=== PATIENT | male | born 1980 | race American Indian/Alaskan Native ===

== ENCOUNTER 2022-03-20 00:10 | Emergency (ER) | payer MEDICAID, OTHER ==
[~2022-03-20] VITALS: Ht 182.9 cm; Wt 113.6 kg
[~2022-03-20 00:10] MED LIST: LORA-268 PO; LORA-269 PO; PRAZ2CAP2 PO; PRAZ5CAP2 PO; QUET100T34 PO; VENL150C58 PO
[2022-03-20 00:25] VITALS: BP 132/93
[2022-03-20 01:29] LABS: BASOPHILS % (AUTO) 0.4 % (0-1); EOSINOPHILS # (AUTO) 0.3 X10'3 (0-0.9); EOSINOPHILS % (AUTO) 4.2 % (0-6); HEMOGLOBIN 15.2 g/dl (14.0-17.9); LYMPHOCYTES # (AUTO) 2.4 X10'3 (1.1-4.8); LYMPHOCYTES % (AUTO) 39.8 % (21-51); MEAN CORPUSCULAR HEMOGLOBIN 30.2 PG (27.0-31.0); MEAN CORPUSCULAR HGB CONC 34.6 g/dL (33.0-36.5); MEAN CORPUSCULAR VOLUME 87.5 FL (78-98); MEAN PLATELET VOLUME 8.4 FL (7.4-10.4); MONOCYTES # (AUTO) 0.4 X10'3 (0-0.9); MONOCYTES % (AUTO) 5.9 % (2-12); NEUTROPHILS % (AUTO) 49.7 % (42-75); PLATELET COUNT 183 X10'3 (140-440); RED BLOOD COUNT 5.03 X10'6 (4.70-6.10); RED CELL DISTRIBUTION WIDTH 16.7 % (11.5-14.5)
[2022-03-20 01:42] LABS: ALANINE AMINOTRANSFERASE 35 U/L (12-78); ALBUMIN/GLOBULIN RATIO 1.2 (1.1-1.5); ALKALINE PHOSPHATASE 135 IU/L (46-116); ANION GAP 13 (8-16); ASPARTATE AMINO TRANSFERASE 30 U/L (10-37); BILIRUBIN,TOTAL 0.4 MG/DL (0.1-1.0); BLOOD UREA NITROGEN 4 MG/DL (7-18); BUN/CREATININE RATIO 5.4 (5.4-32.0); CALCIUM 8.7 MG/DL (8.5-10.1); CHLORIDE 105 MMOL/L (99-107); CREATININE 0.74 MG/DL (0.60-1.10); GLUCOSE 99 MG/DL (70-104); LIPASE 87 U/L (73-393); POTASSIUM 3.2 MMOL/L (3.5-5.1); SODIUM 143 MMOL/L (135-145); TOTAL CARBON DIOXIDE 25.1 MMOL/L (24-32); TOTAL PROTEIN 7.3 G/DL (6.4-8.2); eGFR > 90 ML/MIN
[2022-03-20] MEDS ORDERED: LORazepam 2 mg/ml vial IV ONE (07:55)
[2022-03-20] MEDS ORDERED: ringers solution, lactated 1000ml IV soln IV ONE (07:55)
[2022-03-20] MEDS ORDERED: morphine 4 MG/ML inj SYRINge IV PRN (08:45)
[2022-03-20] MEDS ORDERED: ondansetron/PF 4mg/2ml inj IV ONE (08:45)
[2022-03-20 10:09] LABS: CLARITY,URINE CLOUDY (Clear); COLOR,URINE YELLOW (Yellow); GLUCOSE, URINE NEGATIVE (Neg); KETONES,URINE TRACE mg/dl (Neg); LEUKOCYTE ESTERASE ,URINE TRACE (Neg); NITRITES, URINE NEGATIVE (Neg); OCCULT BLOOD,URINE NEGATIVE (Neg); PROTEIN,URINE TRACE mg/dl (Neg); UROBILINOGEN,URINE 0.2 E.U/dL (0.2-1.0)
[2022-03-20 10:10] LABS: UA COLLECTION TYPE CLN CATCH MIDSTREAM
[2022-03-20 10:19] LABS: MUCUS STRANDS MANY /LPF (Neg); SQUAMOUS EPITHELIAL CELL,UR MANY /LPF (FEW)
[2022-03-20 10:21] LABS: BACTERIA,URINE FEW /HPF (Neg); TRANSITIONAL EPI CELLS,URINE FEW /HPF
[2022-03-20 10:22] LABS: RBC,URINE 0-2 /HPF (0-2)
== END 2022-03-20 13:35 | disposition home or self-care (01) ==
LOC: ER 00:10
DX: R07.89 Other chest pain (principal); F10.239 Alcohol dependence with withdrawal, unspecified; R11.10 Vomiting, unspecified; R19.7 Diarrhea, unspecified; I10 Essential (primary) hypertension; Z86.69 Personal history of other diseases of the nervous system and sense organs; Z98.890 Other specified postprocedural states; Z72.89 Other problems related to lifestyle; Z79.899 Other long term (current) drug therapy; Y90.9 Presence of alcohol in blood, level not specified
CPT/HCPCS: 36415; 71045; 80053; 81001; 83690; 84484; 85025; 93005; 96361; 96374; 96375; 99285; J2060; J2405; J7120

== ENCOUNTER 2022-06-15 02:19 | Inpatient (IN) | payer MEDICAID, OTHER ==
[~2022-06-15] VITALS: Ht 182.9 cm; Wt 113.6 kg
--- NOTE | 2022-06-15 02:35 | NUR ---
3-4 PINTS OF MANOJ FRYE A DAY
[2022-06-15] MEDS ORDERED: LYR25C PO (02:41)
[2022-06-15 03:44] LABS: BASOPHILS # (AUTO) 0.1 X10'3 (0-0.2); BASOPHILS % (AUTO) 1.1 % (0-1); EOSINOPHILS # (AUTO) 0.2 X10'3 (0-0.9); EOSINOPHILS % (AUTO) 1.7 % (0-6); HEMATOCRIT 46.6 % (42.0-52.0); HEMOGLOBIN 15.7 g/dl (14.0-17.9); LYMPHOCYTES # (AUTO) 1.4 X10'3 (1.1-4.8); MEAN CORPUSCULAR HEMOGLOBIN 30.3 PG (27.0-31.0); MEAN CORPUSCULAR HGB CONC 33.7 g/dL (33.0-36.5); MEAN CORPUSCULAR VOLUME 89.9 FL (78-98); MEAN PLATELET VOLUME 9.3 FL (7.4-10.4); MONOCYTES # (AUTO) 0.5 X10'3 (0-0.9); MONOCYTES % (AUTO) 6.1 % (2-12); NEUTROPHILS # (AUTO) 6.5 X10'3 (1.8-7.7); NEUTROPHILS % (AUTO) 75.1 % (42-75); PLATELET COUNT 202 X10'3 (140-440); RED BLOOD COUNT 5.18 X10'6 (4.70-6.10); WHITE BLOOD COUNT 8.7 X10'3 (4.5-11.0)
[2022-06-15 03:59] LABS: ALANINE AMINOTRANSFERASE 86 U/L (12-78); ALBUMIN 3.9 G/DL (3.4-5.0); ALBUMIN/GLOBULIN RATIO 1.3 (1.1-1.5); ALKALINE PHOSPHATASE 131 IU/L (46-116); ANION GAP 15 (8-16); ASPARTATE AMINO TRANSFERASE 71 U/L (10-37); BLOOD UREA NITROGEN 6 MG/DL (7-18); BUN/CREATININE RATIO 7.7 (5.4-32.0); CALCIUM 8.3 MG/DL (8.5-10.1); CHLORIDE 98 MMOL/L (99-107); CREATININE 0.78 MG/DL (0.60-1.10); GLUCOSE 110 MG/DL (70-104); LIPASE 69 U/L (73-393); SODIUM 139 MMOL/L (135-145); TOTAL CARBON DIOXIDE 25.9 MMOL/L (24-32); TOTAL PROTEIN 6.9 G/DL (6.4-8.2); eGFR > 90 ML/MIN
[2022-06-15] MEDS ORDERED: thiamine inj. 100 MG in normal saline 100ml IV soln 100 ML IV ONE (04:05)
[2022-06-15] MEDS ORDERED: normal saline 1000ML IV soln IVB ONE (04:05)
[2022-06-15] MEDS ORDERED: magnesium 2GM in 50ml NS 50 ML IV ONE (04:05)
[2022-06-15] MEDS ORDERED: potassium CL 10mEq/100ml bag 100 ML IV ONE (04:05)
[2022-06-15] MEDS ORDERED: LORazepam 2 mg/ml vial IV ONE (04:05)
[2022-06-15] MEDS ORDERED: haloperidol lactate 5mg/ml inj IM ONE (04:05)
[2022-06-15 04:06] LABS: ETHANOL 0.188 GM/DL (0.0-0.010); MAGNESIUM 1.3 MG/DL (1.5-2.4)
[2022-06-15] MEDS ORDERED: ondansetron/PF 4mg/2ml inj IV PRN (05:00)
[2022-06-15] MEDS ORDERED: haloperidol lactate 5mg/ml inj IM PRN (05:00)
[2022-06-15] MEDS ORDERED: acetaminophen 325mg tablet PO PRN ×2 (05:00)
[2022-06-15] MEDS ORDERED: LORazepam 2 mg/ml vial IV PRN (05:00)
[2022-06-15] MEDS ORDERED: potassium Cl 20 mEq SR tablet PO PRN ×2 (05:00)
[2022-06-15] MEDS ORDERED: magnesium 4gm in 100ml NS 100 ML IV PRN (05:00)
[2022-06-15] MEDS ORDERED: potassium Cl 40MEQ/1/2NS 520ml 520 ML IV PRN (05:00)
[2022-06-15] MEDS ORDERED: normal saline 1000ml 1,000 ML IV SCH (05:00)
[2022-06-15] MEDS ORDERED: magnesium Cl slow-release 64mg tablet PO PRN (05:00)
[2022-06-15] MEDS ORDERED: haloperidol 5mg tablet PO PRN (05:00)
[2022-06-15] MEDS ORDERED: thiamine 100mg/ml 2ml inj. IV SCH ×3 (08:00→15:49)
[2022-06-15] MEDS ORDERED: atenolol 50mg tablet PO SCH (08:00)
[2022-06-15] MEDS ORDERED: folic acid 1mg/0.2ml inj IV SCH (08:00)
[2022-06-15] MEDS ORDERED: heparin, porcine 5000 units/ml vial SQ SCH (08:00)
--- NOTE | 2022-06-15 10:49 | NUR ---
CIWA SCORE 8
--- NOTE | 2022-06-15 10:51 | NUR ---
PT REQUESTING ATIVAN FOR TREMORS. PT DENIES VISUAL, TACTILE DISTURBANCES, VOMITING. PT A&O X4. PT SCORED 8 ON CIWA SCORE. PT WAS GIVEN ATIVAN 2 HRS AGO. WILL CONT. TO MONITOR FOR S/S OF WITHDRAWL.
[2022-06-15] MEDS: LORazepam 1 MG tablet PO PRN ×2 (12:49→16:00)
[2022-06-15 13:09] LABS: CLARITY,URINE CLOUDY (Clear); GLUCOSE, URINE NEGATIVE (Neg); KETONES,URINE 40 mg/dl (Neg); LEUKOCYTE ESTERASE ,URINE NEGATIVE (Neg); OCCULT BLOOD,URINE NEGATIVE (Neg); PH,URINE 6.5 (4.8-8.0); PROTEIN,URINE 100 mg/dl (Neg); UROBILINOGEN,URINE 0.2 E.U/dL (0.2-1.0)
[2022-06-15 13:11] LABS: COLOR,URINE DARK YELLOW (Yellow)
[2022-06-15 13:15] LABS: UA COLLECTION TYPE CLN CATCH MIDSTREAM
[2022-06-15 13:16] LABS: NITRITES, URINE NEGATIVE (Neg)
[2022-06-15 13:24] LABS: MUCUS STRANDS MANY /LPF (Neg)
[2022-06-15 13:30] LABS: BACTERIA,URINE FEW /HPF (Neg); RBC,URINE 0-2 /HPF (0-2); WBC,URINE 30-50 /HPF (0-4)
[2022-06-15 13:34] LABS: SQUAMOUS EPITHELIAL CELL,UR MODERATE /LPF (FEW)
[2022-06-15 13:41] LABS: URINE AMPHETAMINE SCREEN NEGATIVE (Neg); URINE BARBITUATE SCREEN NEGATIVE (Neg); URINE BENZODIAZEPINES SCREEN NEGATIVE (Neg); URINE CANNABINOID SCREEN NEGATIVE (Neg); URINE COCAINE SCREEN NEGATIVE (Neg); URINE METHADONE SCREEN NEGATIVE (Neg); URINE OPIATE SCREEN NEGATIVE (Neg); URINE PHENCYCLIDINE SCREEN NEGATIVE (Neg)
[2022-06-15] MEDS ORDERED: LORA-269 PO ×3 (13:54→18:34)
[2022-06-15] MEDS ORDERED: PREG300C19 PO (13:55)
[2022-06-15] MEDS ORDERED: QUET50TA24 PO (14:00)
[2022-06-15 16:06] VITALS: BP 142/92
--- NOTE | 2022-06-15 16:28 | NUR ---
PT SCORES 5 ON CIWA SCALE. HAS SLIGHT TREMORS. PT DENIES HEADACHE, NAUSEA, VISUAL, TACTILE DISTURBANCES, VITALS WNL. PT REQUESTING IV ATIVAN. PER PT SYMPTOMS PO ATIVAN APPROPRIATE.
--- NOTE | 2022-06-15 18:16 | NUR ---
PT REQUESTING TO GO HOME. DR. COVINGTON PAGED.
--- NOTE | 2022-06-15 19:59 | NUR ---
spoke to Laura on the PCU floor, instructed to dc patient as "ER" usually does.
[2022-06-16] MEDS ORDERED: PROM12.512 PO ×2 (03:51)
[2022-06-17] MEDS ORDERED: PROM12.510 PO (17:13)
[2022-06-17] MEDS ORDERED: LORA-269 PO (17:13)
== END 2022-06-15 20:00 | disposition home or self-care (01) | DRG 53 ==
LOC: ER 02:20 → ED HOLD 05:02
PROVIDERS: ADMIT Internal Medicine; ATTEND Internal Medicine
DX: G40.89 Other seizures (principal); K70.10 Alcoholic hepatitis without ascites; E83.42 Hypomagnesemia; E87.6 Hypokalemia; Z20.822 Contact with and (suspected) exposure to COVID-19; F10.230 Alcohol dependence with withdrawal, uncomplicated; R74.01 Elevation of levels of liver transaminase levels; G89.29 Other chronic pain; I10 Essential (primary) hypertension; Z79.899 Other long term (current) drug therapy
CPT/HCPCS: 36415; 71045; 73130; 80053; 80305; 80320; 81001; 83690; 83735; 84132; 85025; 87088; 87811; 93005; 96365; 96367; 96372; 96375; 99285; A4615; G0378; J1630; J1644; J2060; J2405; J3411; J3475; J3480; J3490; J7030

== ENCOUNTER 2022-06-16 03:29 | Emergency (ER) | payer MEDICAID ==
[~2022-06-16] VITALS: Ht 182.9 cm; Wt 117.2 kg
[~2022-06-16 03:29] MED LIST changes: -LORA-268 PO; +PREG300C19 PO; -QUET100T34 PO; +QUET50TA24 PO; -VENL150C58 PO
[2022-06-16 03:40] VITALS: BP 161/100
[2022-06-16] MEDS ORDERED: PROM12.512 PO ×2 (03:51)
--- NOTE | 2022-06-16 03:51 | NUR ---
Dr Dawson in room and evaluated pt
[2022-06-17] MEDS ORDERED: LORA-269 PO (17:13)
[2022-06-17] MEDS ORDERED: PROM12.510 PO (17:13)
== END 2022-06-16 05:07 | disposition home or self-care (01) ==
LOC: ER 03:30
DX: F10.239 Alcohol dependence with withdrawal, unspecified (principal); I10 Essential (primary) hypertension; Y90.9 Presence of alcohol in blood, level not specified
CPT/HCPCS: 99283

== ENCOUNTER 2022-08-05 22:25 | Emergency (ER) | payer MEDICAID ==
[~2022-08-05] VITALS: Ht 180.3 cm; Wt 109.1 kg
[~2022-08-05 22:25] MED LIST changes: +PROM12.510 PO
[2022-08-05] MEDS ORDERED: LORazepam 2 mg/ml vial IV ONE (23:30)
[2022-08-05] MEDS ORDERED: LORazepam 1 MG tablet PO ONE (23:30)
[2022-08-05] MEDS ORDERED: thiamine 100mg/ml 2ml inj. IV ONE (23:35)
[2022-08-05] MEDS ORDERED: magnesium 2GM in 50ml NS 50 ML IV ONE (23:35)
[2022-08-05 23:46] LABS: BASOPHILS % (AUTO) 0.5 % (0-1); EOSINOPHILS # (AUTO) 0.2 X10'3 (0-0.9); EOSINOPHILS % (AUTO) 2.9 % (0-6); HEMOGLOBIN 13.4 g/dl (14.0-17.9); LYMPHOCYTES # (AUTO) 1.3 X10'3 (1.1-4.8); LYMPHOCYTES % (AUTO) 23.3 % (21-51); MEAN CORPUSCULAR HEMOGLOBIN 30.2 PG (27.0-31.0); MEAN CORPUSCULAR HGB CONC 33.4 g/dL (33.0-36.5); MEAN CORPUSCULAR VOLUME 90.3 FL (78-98); MEAN PLATELET VOLUME 9.6 FL (7.4-10.4); MONOCYTES # (AUTO) 0.4 X10'3 (0-0.9); MONOCYTES % (AUTO) 7.9 % (2-12); NEUTROPHILS # (AUTO) 3.7 X10'3 (1.8-7.7); NEUTROPHILS % (AUTO) 65.4 % (42-75); PLATELET COUNT 125 X10'3 (140-440); RED BLOOD COUNT 4.43 X10'6 (4.70-6.10); RED CELL DISTRIBUTION WIDTH 14.8 % (11.5-14.5); WHITE BLOOD COUNT 5.6 X10'3 (4.5-11.0)
[2022-08-05 23:59] LABS: ALANINE AMINOTRANSFERASE 69 U/L (12-78); ALBUMIN 3.5 G/DL (3.4-5.0); ALBUMIN/GLOBULIN RATIO 1.2 (1.1-1.5); ALKALINE PHOSPHATASE 120 IU/L (46-116); ANION GAP 12 (8-16); ASPARTATE AMINO TRANSFERASE 35 U/L (10-37); BILIRUBIN,TOTAL 0.2 MG/DL (0.1-1.0); BLOOD UREA NITROGEN 4 MG/DL (7-18); BUN/CREATININE RATIO 5.5 (5.4-32.0); CHLORIDE 109 MMOL/L (99-107); CREATININE 0.73 MG/DL (0.60-1.10); ETHANOL 0.137 GM/DL (0.0-0.010); GLUCOSE 100 MG/DL (70-104); LIPASE 90 U/L (73-393); SODIUM 144 MMOL/L (135-145); TOTAL CARBON DIOXIDE 22.6 MMOL/L (24-32); TOTAL PROTEIN 6.4 G/DL (6.4-8.2); eGFR > 90 ML/MIN
[2022-08-06] MEDS ORDERED: LORazepam 2 mg/ml vial IV ONE (00:55)
[2022-08-06] MEDS ORDERED: LORazepam 1 MG tablet PO ONE (00:55)
[2022-08-06] MEDS ORDERED: ondansetron/PF 4mg/2ml inj IV ONE (00:55)
[2022-08-06] MEDS ORDERED: CHLO25CA10 PO (01:09)
[2022-08-06] MEDS ORDERED: ONDA4TAB12 PO (01:09)
[2022-08-06 01:30] VITALS: BP 115/74
== END 2022-08-06 02:14 | disposition home or self-care (01) ==
LOC: ER 22:26
DX: F10.129 Alcohol abuse with intoxication, unspecified (principal); I10 Essential (primary) hypertension; Z88.8 Allergy status to other drugs, medicaments and biological substances; Y90.9 Presence of alcohol in blood, level not specified
CPT/HCPCS: 36415; 80053; 80320; 83690; 85025; 93005; 96365; 96375; 96376; 99285; J2060; J2405; J3411; J3475

== ENCOUNTER 2022-09-07 17:05 | Emergency (ER) | payer MEDICAID ==
[~2022-09-07] VITALS: Ht 182.9 cm; Wt 114.5 kg
[~2022-09-07 17:05] MED LIST changes: +CHLO25CA10 PO; +KEP500T PO; +ONDA4TAB12 PO; +PREG300C PO; +QUET50TA PO
--- NOTE | 2022-09-07 17:39 | NUR ---
PT AWARE OF NEED FOR UA, PROVIDED WITH URINAL. STATES HE CANNOT PROVIDE SAMPLE AT THIS TIME
[2022-09-07] MEDS ORDERED: LORazepam 2 mg/ml vial IV ONE (17:40)
--- NOTE | 2022-09-07 17:48 | NUR ---
SEIZURE PADS IN PLACE
[2022-09-07] MEDS ORDERED: ondansetron/PF 4mg/2ml inj IV ONE (18:00)
[2022-09-07] MEDS ORDERED: thiamine inj. 100 MG in normal saline 100ml IV soln 100 ML IV ONE (18:00)
[2022-09-07 18:10] LABS: ALANINE AMINOTRANSFERASE 29 U/L (12-78); ALBUMIN 3.9 G/DL (3.4-5.0); ALBUMIN/GLOBULIN RATIO 1.2 (1.1-1.5); ALKALINE PHOSPHATASE 130 IU/L (46-116); ANION GAP 12 (8-16); ASPARTATE AMINO TRANSFERASE 24 U/L (10-37); BILIRUBIN,TOTAL 0.5 MG/DL (0.1-1.0); BLOOD UREA NITROGEN 3 MG/DL (7-18); BUN/CREATININE RATIO 3.6 (10.0-20.0); CALCIUM 8.2 MG/DL (8.5-10.1); CHLORIDE 107 MMOL/L (99-107); CREATININE 0.83 MG/DL (0.60-1.10); GLUCOSE 100 MG/DL (70-104); MAGNESIUM 1.7 MG/DL (1.5-2.4); POTASSIUM 3.1 MMOL/L (3.5-5.1); SODIUM 147 MMOL/L (135-145); TOTAL CARBON DIOXIDE 28.3 MMOL/L (24-32); TOTAL PROTEIN 7.1 G/DL (6.4-8.2); eGFR > 90 ML/MIN
[2022-09-07 18:14] LABS: BASOPHILS % (AUTO) 0.4 % (0-1); EOSINOPHILS % (AUTO) 0.3 % (0-6); HEMATOCRIT 47.8 % (42.0-52.0); HEMOGLOBIN 16.1 g/dl (14.0-17.9); LYMPHOCYTES # (AUTO) 2.1 X10'3 (1.1-4.8); LYMPHOCYTES % (AUTO) 27.2 % (21-51); MEAN CORPUSCULAR HEMOGLOBIN 30.2 PG (27.0-31.0); MEAN CORPUSCULAR HGB CONC 33.7 g/dL (33.0-36.5); MEAN CORPUSCULAR VOLUME 89.9 FL (78-98); MEAN PLATELET VOLUME 9.4 FL (7.4-10.4); MONOCYTES # (AUTO) 0.4 X10'3 (0-0.9); MONOCYTES % (AUTO) 5.5 % (2-12); NEUTROPHILS # (AUTO) 5.2 X10'3 (1.8-7.7); NEUTROPHILS % (AUTO) 66.6 % (42-75); PLATELET COUNT 223 X10'3 (140-440); RED BLOOD COUNT 5.32 X10'6 (4.70-6.10); RED CELL DISTRIBUTION WIDTH 15.5 % (11.5-14.5); WHITE BLOOD COUNT 7.9 X10'3 (4.5-11.0)
[2022-09-07] MEDS ORDERED: thiamine 100mg/ml 2ml inj. IV ONE (18:20)
[2022-09-07] MEDS ORDERED: potassium Cl 20 mEq SR tablet PO ONE (18:45)
[2022-09-07] MEDS ORDERED: magnesium 2GM in 50ml NS 50 ML IV ONE (18:45)
[2022-09-07] MEDS ORDERED: chlordiazePOXIDE 25mg capsule PO ONE ×2 (21:30→23:55)
[2022-09-07] MEDS ORDERED: normal saline 1000ML IV soln IVB ONE (21:30)
[2022-09-07] MEDS ORDERED: HYDROcodone/acetaminophen 5mg/325mg tablet PO ONE (21:50)
[2022-09-07 22:20] LABS: COLOR,URINE YELLOW (Yellow); GLUCOSE, URINE NEGATIVE (Neg); KETONES,URINE NEGATIVE (Neg); LEUKOCYTE ESTERASE ,URINE NEGATIVE (Neg); NITRITES, URINE NEGATIVE (Neg); OCCULT BLOOD,URINE NEGATIVE (Neg); PROTEIN,URINE TRACE mg/dl (Neg); UROBILINOGEN,URINE 0.2 E.U/dL (0.2-1.0)
[2022-09-07 22:26] LABS: CLARITY,URINE SLIGHTLY CLOUDY (Clear); UA COLLECTION TYPE URINAL
[2022-09-07 22:28] LABS: BACTERIA,URINE FEW /HPF (Neg); MUCUS STRANDS FEW /LPF (Neg); RBC,URINE 0-2 /HPF (0-2); SQUAMOUS EPITHELIAL CELL,UR FEW /LPF (FEW)
[2022-09-07 22:38] LABS: URINE AMPHETAMINE SCREEN NEGATIVE (Neg); URINE BARBITUATE SCREEN NEGATIVE (Neg); URINE BENZODIAZEPINES SCREEN POSITIVE (Neg); URINE CANNABINOID SCREEN NEGATIVE (Neg); URINE COCAINE SCREEN NEGATIVE (Neg); URINE METHADONE SCREEN NEGATIVE (Neg); URINE OPIATE SCREEN NEGATIVE (Neg); URINE PHENCYCLIDINE SCREEN NEGATIVE (Neg)
[2022-09-07] MEDS ORDERED: cephalexin 500mg capsule PO ONE (22:45)
[2022-09-07] MEDS ORDERED: levetiracetam 250mg tablet PO ONE (22:50)
[2022-09-07] MEDS ORDERED: CHLO25CA10 PO (23:48)
[2022-09-07] MEDS ORDERED: CEPH500C82 PO (23:48)
[2022-09-08 00:25] VITALS: BP 135/78
[2022-09-08] MEDS ORDERED: QUET100T34 PO (17:09)
[2022-09-08] MEDS ORDERED: PRAZ5CAP2 PO (17:09)
[2022-09-08] MEDS ORDERED: LEVE500T PO (17:09)
[2022-09-08] MEDS ORDERED: LORA-269 PO (17:09)
[2022-09-08] MEDS ORDERED: PANT40TA54 PO (17:09)
[2022-09-08] MEDS ORDERED: VENL150C58 PO (17:09)
[2022-09-08] MEDS ORDERED: PRAZ2CAP2 PO (17:09)
[2022-09-08] MEDS ORDERED: THIA100T70 PO (17:09)
[2022-09-08] MEDS ORDERED: FOLI1TAB27 PO (17:09)
[2022-09-08] MEDS ORDERED: PREG300C PO (17:09)
== END 2022-09-08 00:27 | disposition home or self-care (01) ==
LOC: ER 17:06
DX: G43.909 Migraine, unspecified, not intractable, without status migrainosus (principal); F10.930 Alcohol use, unspecified with withdrawal, uncomplicated; N39.0 Urinary tract infection, site not specified; I10 Essential (primary) hypertension; Z88.8 Allergy status to other drugs, medicaments and biological substances; Z79.899 Other long term (current) drug therapy
CPT/HCPCS: 36415; 71045; 71110; 73130; 80053; 80305; 81001; 83605; 83735; 85025; 87088; 96361; 96374; 96375; 99285; J2060; J2405; J3411; J3475; J7030

== ENCOUNTER 2022-09-08 12:08 | Emergency (ER) | payer MEDICAID ==
[~2022-09-08] VITALS: Ht 182.9 cm; Wt 105.6 kg
[~2022-09-08 12:08] MED LIST changes: +CEPH500C82 PO
[2022-09-08 13:16] LABS: CLARITY,URINE CLEAR (Clear); COLOR,URINE STRAW (Yellow); GLUCOSE, URINE NEGATIVE (Neg); KETONES,URINE NEGATIVE (Neg); LEUKOCYTE ESTERASE ,URINE NEGATIVE (Neg); NITRITES, URINE NEGATIVE (Neg); OCCULT BLOOD,URINE NEGATIVE (Neg); PH,URINE 6.5 (4.8-8.0); PROTEIN,URINE NEGATIVE (Neg); UA COLLECTION TYPE CLN CATCH MIDSTREAM; UROBILINOGEN,URINE 0.2 E.U/dL (0.2-1.0)
[2022-09-08] MEDS ORDERED: LORazepam 2 mg/ml vial IM ONE (13:27)
[2022-09-08 14:01] LABS: BASOPHILS # (AUTO) 0.1 X10'3 (0-0.2); BASOPHILS % (AUTO) 1.1 % (0-1); EOSINOPHILS % (AUTO) 1.1 % (0-6); HEMATOCRIT 44.7 % (42.0-52.0); LYMPHOCYTES # (AUTO) 1.8 X10'3 (1.1-4.8); LYMPHOCYTES % (AUTO) 40.2 % (21-51); MEAN CORPUSCULAR HEMOGLOBIN 30.3 PG (27.0-31.0); MEAN CORPUSCULAR HGB CONC 33.5 g/dL (33.0-36.5); MEAN CORPUSCULAR VOLUME 90.6 FL (78-98); MEAN PLATELET VOLUME 9.3 FL (7.4-10.4); MONOCYTES # (AUTO) 0.4 X10'3 (0-0.9); MONOCYTES % (AUTO) 9.6 % (2-12); NEUTROPHILS # (AUTO) 2.1 X10'3 (1.8-7.7); PLATELET COUNT 193 X10'3 (140-440); RED BLOOD COUNT 4.94 X10'6 (4.70-6.10); RED CELL DISTRIBUTION WIDTH 15.3 % (11.5-14.5); WHITE BLOOD COUNT 4.4 X10'3 (4.5-11.0)
[2022-09-08 14:13] LABS: ALANINE AMINOTRANSFERASE 31 U/L (12-78); ALBUMIN 3.7 G/DL (3.4-5.0); ALBUMIN/GLOBULIN RATIO 1.1 (1.1-1.5); ALKALINE PHOSPHATASE 124 IU/L (46-116); ANION GAP 11 (8-16); ASPARTATE AMINO TRANSFERASE 23 U/L (10-37); BILIRUBIN,TOTAL 0.6 MG/DL (0.1-1.0); BLOOD UREA NITROGEN 3 MG/DL (7-18); BUN/CREATININE RATIO 4.3 (10.0-20.0); CALCIUM 8.1 MG/DL (8.5-10.1); CHLORIDE 108 MMOL/L (99-107); CREATININE 0.69 MG/DL (0.60-1.10); GLUCOSE 89 MG/DL (70-104); POTASSIUM 3.4 MMOL/L (3.5-5.1); SODIUM 146 MMOL/L (135-145); TOTAL CARBON DIOXIDE 26.8 MMOL/L (24-32); eGFR > 90 ML/MIN
[2022-09-08 14:22] LABS: ETHANOL 0.244 GM/DL (0.0-0.010)
--- NOTE | 2022-09-08 14:27 | NUR ---
Patient reports thoughts of "hurting himself", denies specific plan at this time but reports multiple attempts of SI such as jumping off the bridge and building, cutting wrist.Denies visual and auditory hallucinations.Patietn is calm and cooperative.Reports recent loss of relationship with his long time girl friend.Patient initially being evaluated for etoh withdrawal but reports SI. We will monitor.
--- NOTE | 2022-09-08 14:35 | NUR ---
Given turkey sandwich and wqater pitcher at bedside.
[2022-09-08 15:28] LABS: URINE AMPHETAMINE SCREEN NEGATIVE (Neg); URINE BARBITUATE SCREEN NEGATIVE (Neg); URINE BENZODIAZEPINES SCREEN POSITIVE (Neg); URINE CANNABINOID SCREEN NEGATIVE (Neg); URINE COCAINE SCREEN NEGATIVE (Neg); URINE METHADONE SCREEN NEGATIVE (Neg); URINE OPIATE SCREEN NEGATIVE (Neg); URINE PHENCYCLIDINE SCREEN NEGATIVE (Neg)
[2022-09-08] MEDS ORDERED: FOLI1TAB27 PO (17:09)
[2022-09-08] MEDS ORDERED: LEVE500T PO (17:09)
[2022-09-08] MEDS ORDERED: THIA100T70 PO (17:09)
[2022-09-08] MEDS ORDERED: PRAZ2CAP2 PO (17:09)
[2022-09-08] MEDS ORDERED: VENL150C58 PO (17:09)
[2022-09-08] MEDS ORDERED: PRAZ5CAP2 PO (17:09)
[2022-09-08] MEDS ORDERED: LORA-269 PO (17:09)
[2022-09-08] MEDS ORDERED: QUET100T34 PO (17:09)
[2022-09-08] MEDS ORDERED: PANT40TA54 PO (17:09)
[2022-09-08] MEDS ORDERED: PREG300C PO (17:09)
[2022-09-08] MEDS ORDERED: LORazepam 2 mg/ml vial IV STA (17:12)
[2022-09-08] MEDS ORDERED: LORazepam 2 mg/ml vial IV ONE (20:20)
[2022-09-09] MEDS ORDERED: LORazepam 2 mg/ml vial IV STA (01:04)
[2022-09-09] MEDS: ondansetron 4mg rapidly disintigrating tab PO PRN ×2 (01:07→10:58)
--- NOTE | 2022-09-09 06:49 | NUR ---
Patient was sleeping at change of shift. Now up to the restroom. No distress noted.
[2022-09-09] MEDS ORDERED: LORazepam 2 mg/ml vial IM ONE ×2 (07:40→07:45)
--- NOTE | 2022-09-09 09:06 | NUR ---
Patient stating that he is not feeling well, having withdrawal symptons. Ativan 1 mg given I.V., flushes easily. Patient is now laying in bed sleeping.
[2022-09-09] MEDS ORDERED: LORazepam 1 MG tablet PO PRN (10:50)
--- NOTE | 2022-09-09 11:08 | NUR ---
Patient requested to speak with RN. Patient states that he feels bad, and is sick to his stomach. Patient is visibly shaking. Ativan 2 mg and Zofran given for withdrawal symptoms.
[2022-09-09] MEDS ORDERED: LORazepam 1 MG tablet PO ONE (11:35)
--- NOTE | 2022-09-09 11:56 | NUR ---
I.V. removed with cannula intact. All personal items were given to patient. i is called to take patient to [facility] in [facility], and then will walk home from there. Patient does not report SI. Patient states that he will be discharged with Librium, and will be more comfortable at home.
[2022-09-09 11:59] VITALS: BP 143/90
== END 2022-09-09 12:02 | disposition home or self-care (01) ==
LOC: ER 12:08
DX: R45.851 Suicidal ideations (principal); Z20.822 Contact with and (suspected) exposure to COVID-19; F33.2 Major depressive disorder, recurrent severe without psychotic features; I10 Essential (primary) hypertension; Z88.8 Allergy status to other drugs, medicaments and biological substances; Z79.899 Other long term (current) drug therapy; Z79.1 Long term (current) use of non-steroidal anti-inflammatories (NSAID); Z79.2 Long term (current) use of antibiotics
CPT/HCPCS: 36415; 80053; 80305; 80320; 81003; 84443; 85025; 87811; 96372; 96374; 96376; 99285; J2060

== ENCOUNTER 2022-09-22 19:09 | Inpatient (IN) | payer MEDICAID ==
[~2022-09-22] VITALS: Ht 182.9 cm; Wt 113.6 kg
[~2022-09-22 19:09] MED LIST changes: -CEPH500C82 PO; -CHLO25CA10 PO; +FOLI1TAB27 PO; -KEP500T PO; +LEVE500T PO; -ONDA4TAB12 PO; +PANT40TA54 PO; -PREG300C19 PO; -PROM12.510 PO; +QUET100T34 PO; -QUET50TA PO; -QUET50TA24 PO; +THIA100T70 PO; +VENL150C58 PO
[2022-09-22 21:21] LABS: MEAN PLATELET VOLUME 10.1 FL (7.4-10.4); PLATELET COUNT 138 X10'3 (140-440); RED CELL DISTRIBUTION WIDTH 15.3 % (11.5-14.5)
[2022-09-22 21:22] LABS: ALANINE AMINOTRANSFERASE 20 U/L (12-78); ALBUMIN 3.9 G/DL (3.4-5.0); ALBUMIN/GLOBULIN RATIO 1.3 (1.1-1.5); ALKALINE PHOSPHATASE 117 IU/L (46-116); ANION GAP 14 (8-16); ASPARTATE AMINO TRANSFERASE 32 U/L (10-37); BASOPHILS # (AUTO) 0.1 X10'3 (0-0.2); BLOOD UREA NITROGEN 10 MG/DL (7-18); BUN/CREATININE RATIO 11.6 (10.0-20.0); CALCIUM 8.2 MG/DL (8.5-10.1); CHLORIDE 98 MMOL/L (99-107); CREATININE 0.86 MG/DL (0.60-1.10); EOSINOPHILS % (AUTO) 0.7 % (0-6); GLUCOSE 135 MG/DL (70-104); HEMATOCRIT 46.6 % (42.0-52.0); LIPASE < 50 U/L (73-393); LYMPHOCYTES # (AUTO) 1.6 X10'3 (1.1-4.8); LYMPHOCYTES % (AUTO) 29.3 % (21-51); MEAN CORPUSCULAR HEMOGLOBIN 30.8 PG (27.0-31.0); MEAN CORPUSCULAR HGB CONC 34.4 g/dL (33.0-36.5); MEAN CORPUSCULAR VOLUME 89.6 FL (78-98); MONOCYTES # (AUTO) 0.5 X10'3 (0-0.9); MONOCYTES % (AUTO) 9.9 % (2-12); NEUTROPHILS # (AUTO) 3.1 X10'3 (1.8-7.7); NEUTROPHILS % (AUTO) 59.1 % (42-75); POTASSIUM 3.6 MMOL/L (3.5-5.1); SODIUM 134 MMOL/L (135-145); TOTAL CARBON DIOXIDE 22.5 MMOL/L (24-32); TOTAL PROTEIN 6.8 G/DL (6.4-8.2); WHITE BLOOD COUNT 5.3 X10'3 (4.5-11.0); eGFR > 90 ML/MIN
[2022-09-23] MEDS ORDERED: normal saline 1000ML IV soln IVB ONE (00:35)
[2022-09-23] MEDS ORDERED: diazepam inj 5 MG/ML inj. IV ONE ×2 (00:35→04:45)
[2022-09-23] MEDS ORDERED: pantoprazole 40MG/NS 100ML BAG 100 ML IV ONE ×2 (00:35→04:30)
[2022-09-23] MEDS ORDERED: ondansetron/PF 4mg/2ml inj IV ONE ×2 (00:35→01:55)
[2022-09-23] MEDS ORDERED: Potassium Cl inj 20 MEQ, magnesium sulf injection 2 GM, folic acid inj. 1 MG, thiamine ... IV ONE ×6 (00:35)
[2022-09-23] MEDS ORDERED: dextrose 50%-water 50ml dispensing syringe IV PRN (04:45)
[2022-09-23] MEDS ORDERED: magnesium hydroxide 30ml (MOM) UD suspension PO PRN (04:45)
[2022-09-23] MEDS ORDERED: haloperidol 5mg tablet PO PRN (04:45)
[2022-09-23] MEDS ORDERED: morphine 2 MG/ML inj. syringe IV PRN (04:45)
[2022-09-23] MEDS ORDERED: HYDROcodone/acetaminophen 5mg/325mg tablet PO PRN (04:45)
[2022-09-23] MEDS ORDERED: haloperidol lactate 5mg/ml inj IM PRN (04:45)
[2022-09-23] MEDS ORDERED: loperamide 2mg capsule PO PRN ×2 (04:45)
[2022-09-23] MEDS ORDERED: dicyclomine 10 MG capsule PO PRN (04:45)
[2022-09-23] MEDS ORDERED: metoclopramide 5 mg/ml inj IV PRN (04:45)
[2022-09-23] MEDS ORDERED: acetaminophen 325mg tablet PO PRN ×2 (04:45)
[2022-09-23] MEDS ORDERED: mag hydrox/Alum hydrox/simeth 30ml oral suspension PO PRN ×2 (04:45)
--- NOTE | 2022-09-23 05:00 | NUR ---
D5 1/2NS and protonix compatability not tested. unable to obtain a second access on patient. holding off on administering D5 1/2NS until protonix completed.
[2022-09-23] MEDS: ondansetron/PF 4mg/2ml inj IV PRN ×2 (06:58→14:50)
--- NOTE | 2022-09-23 07:08 | NUR ---
Patient in room ED 12. I have received report from VIRGINIA SILVA and had the opportunity to ask questions and assume patient care.
[2022-09-23 07:37] VITALS: BP 171/107
[2022-09-23] MEDS: LORazepam 2 mg/ml vial IV PRN ×8 (07:43→22:43)
[2022-09-23] MEDS ORDERED: folic acid 1mg/0.2ml inj IV SCH (08:00)
[2022-09-23] MEDS ORDERED: pantoprazole 40MG/NS 100ML BAG 100 ML IV SCH (08:00)
[2022-09-23] MEDS: dextrose 5%-1/2 normal saline 1,000 ML IV SCH ×3 (08:27→18:07)
[2022-09-23] MEDS: multivitamins, therapeutics tablet PO SCH (08:28)
[2022-09-23] MEDS: docusate sod 100mg capsule PO SCH ×2 (08:28→20:00)
[2022-09-23] MEDS: thiamine 100mg/ml 2ml inj. IV SCH ×3 (08:30→21:41)
[2022-09-23] MEDS: morphine 2 MG/ML inj. syringe IV PRN ×3 (09:51→19:51)
[2022-09-23 11:43] VITALS: BP 153/100
[2022-09-23 15:00] VITALS: BP 136/84
[2022-09-23] MEDS: pantoprazole 40MG/NS 100ML BAG 100 ML IV SCH (20:00)
--- NOTE | 2022-09-23 20:30 | NUR ---
Patient in room U 3025. I have received report from SHIRA Crane and had the opportunity to ask questions and assume patient care. Addendum: 09/24/22 at 0114 by Evelyn Gibson RN Amended: Links added.
[2022-09-23 21:35] VITALS: BP 138/91
[2022-09-23] MEDS: pregabalin 75mg capsule PO SCH (21:37)
[2022-09-23] MEDS: levetiracetam 250mg tablet PO SCH (21:37)
[2022-09-23] MEDS: quetiapine 100mg tablet PO SCH (21:38)
[2022-09-23] MEDS: pantoprazole 40mg Tablet.DR PO SCH (21:38)
[2022-09-23] MEDS: prazosin 1mg capsule PO SCH (21:40)
[2022-09-23] MEDS: prazosin 5mg capsule PO SCH (21:40)
[2022-09-23] MEDS: HYDROcodone/acetaminophen 10/325mg tab PO PRN (21:46)
--- NOTE | 2022-09-23 22:53 | NUR ---
HR UP TO 140 SOME SHAKING DIAPHORETIC, PT REQUESTS, UP TO BATHROOM SBA Addendum: 09/23/22 at 2253 by Evelyn Gibson RN Amended: Links added.
[2022-09-24] MEDS: morphine 2 MG/ML inj. syringe IV PRN ×5 (01:21→21:06)
[2022-09-24] MEDS: LORazepam 2 mg/ml vial IV PRN ×10 (01:21→23:13)
[2022-09-24 02:15] VITALS: BP 144/91
--- NOTE | 2022-09-24 02:15 | NUR ---
hr goes up to 160 when up to bathroom briefly, now hr 104. vss Addendum: 09/24/22 at 0216 by Evelyn Gibson RN Amended: Links added.
[2022-09-24] MEDS: HYDROcodone/acetaminophen 10/325mg tab PO PRN (02:42)
[2022-09-24] MEDS: ondansetron/PF 4mg/2ml inj IV PRN ×4 (03:02→23:13)
[2022-09-24] MEDS: dextrose 5%-1/2 normal saline 1,000 ML IV SCH (03:12)
--- NOTE | 2022-09-24 06:11 | NUR ---
Problems reprioritized. Patient report given, questions answered & plan of care reviewed with SHIRA ARIAS. pT NOT HAVING TREMORS OR SHAKING AT THIS TIME. Addendum: 09/24/22 at 0612 by Evelyn Gibson RN Amended: Links added.
--- NOTE | 2022-09-24 06:18 | NUR ---
Patient in room PCU 3025. I have received report from Deb SILVA and had the opportunity to ask questions and assume patient care.
[2022-09-24 06:21] LABS: ALBUMIN 2.9 G/DL (3.4-5.0); ANION GAP 5 (8-16); BLOOD UREA NITROGEN 4 MG/DL (7-18); BUN/CREATININE RATIO 4.3 (10.0-20.0); CALCIUM 7.5 MG/DL (8.5-10.1); CHLORIDE 108 MMOL/L (99-107); CREATININE 0.94 MG/DL (0.60-1.10); GLUCOSE 109 MG/DL (70-104); POTASSIUM 3.2 MMOL/L (3.5-5.1); SODIUM 138 MMOL/L (135-145); TOTAL CARBON DIOXIDE 24.9 MMOL/L (24-32); eGFR 88 ML/MIN
[2022-09-24 06:25] LABS: BASOPHILS % (AUTO) 0.7 % (0-1); EOSINOPHILS # (AUTO) 0.1 X10'3 (0-0.9); EOSINOPHILS % (AUTO) 4.4 % (0-6); HEMATOCRIT 37.1 % (42.0-52.0); HEMOGLOBIN 12.5 g/dl (14.0-17.9); LYMPHOCYTES # (AUTO) 1.5 X10'3 (1.1-4.8); LYMPHOCYTES % (AUTO) 45.6 % (21-51); MEAN CORPUSCULAR HEMOGLOBIN 30.8 PG (27.0-31.0); MEAN CORPUSCULAR HGB CONC 33.6 g/dL (33.0-36.5); MEAN CORPUSCULAR VOLUME 91.6 FL (78-98); MONOCYTES # (AUTO) 0.3 X10'3 (0-0.9); MONOCYTES % (AUTO) 10.3 % (2-12); NEUTROPHILS # (AUTO) 1.2 X10'3 (1.8-7.7); PLATELET COUNT 94 X10'3 (140-440); RED BLOOD COUNT 4.05 X10'6 (4.70-6.10); RED CELL DISTRIBUTION WIDTH 15.5 % (11.5-14.5); WHITE BLOOD COUNT 3.2 X10'3 (4.5-11.0)
[2022-09-24 07:37] VITALS: BP 143/83
[2022-09-24] MEDS: multivitamins, therapeutics tablet PO SCH (07:54)
[2022-09-24] MEDS: thiamine 100mg tablet PO SCH (07:55)
[2022-09-24] MEDS: pantoprazole 40mg Tablet.DR PO SCH ×2 (07:55→19:22)
[2022-09-24] MEDS: venlafaxine XR 75mg capsule (Q24H) PO SCH (07:55)
[2022-09-24] MEDS: docusate sod 100mg capsule PO SCH ×2 (07:56→19:20)
[2022-09-24] MEDS: folic acid 1mg tablet PO SCH (07:57)
[2022-09-24] MEDS: levetiracetam 250mg tablet PO SCH ×2 (07:57→19:20)
[2022-09-24] MEDS: pregabalin 75mg capsule PO SCH ×2 (07:57→19:20)
[2022-09-24] MEDS: pantoprazole 40MG/NS 100ML BAG 100 ML IV SCH ×2 (08:00→19:21)
--- NOTE | 2022-09-24 08:08 | NUR ---
PAGER ID: [phone] MESSAGE: Royce Louisa re: [id number] Handy, A Patient would like to have diet upgraded to regular and could I add replacement protocol for a K+ of 3.2 Thanks
[2022-09-24] MEDS ORDERED: potassium Cl 20 mEq SR tablet PO STA (10:55)
[2022-09-24 12:00] VITALS: BP 135/89
[2022-09-24 16:00] VITALS: BP 127/84
[2022-09-24 18:00] VITALS: BP 131/77
--- NOTE | 2022-09-24 18:47 | NUR ---
Problems reprioritized. Patient report given, questions answered & plan of care reviewed with Ashley SILVA.
[2022-09-24] MEDS: prazosin 1mg capsule PO SCH (19:20)
[2022-09-24] MEDS: quetiapine 100mg tablet PO SCH (19:20)
[2022-09-24] MEDS: prazosin 5mg capsule PO SCH (19:22)
[2022-09-24 22:00] VITALS: BP 128/90
[2022-09-25] MEDS: dextrose 5%-1/2 normal saline 1,000 ML IV SCH ×2 (00:52→06:45)
[2022-09-25] MEDS: LORazepam 2 mg/ml vial IV PRN ×2 (01:19→03:24)
[2022-09-25] MEDS: morphine 2 MG/ML inj. syringe IV PRN (01:20)
[2022-09-25] MEDS ORDERED: LORazepam 2 mg/ml vial IV PRN (04:45)
[2022-09-25] MEDS ORDERED: LORazepam 1 MG tablet PO PRN (04:45)
[2022-09-25] MEDS: HYDROcodone/acetaminophen 10/325mg tab PO PRN ×2 (05:20→10:51)
[2022-09-25 06:12] LABS: ANION GAP 8 (8-16); BLOOD UREA NITROGEN 5 MG/DL (7-18); CALCIUM 7.8 MG/DL (8.5-10.1); CHLORIDE 104 MMOL/L (99-107); CREATININE 0.84 MG/DL (0.60-1.10); GLUCOSE 121 MG/DL (70-104); POTASSIUM 3.8 MMOL/L (3.5-5.1); SODIUM 137 MMOL/L (135-145); TOTAL CARBON DIOXIDE 25.1 MMOL/L (24-32); eGFR > 90 ML/MIN
[2022-09-25 06:14] LABS: BASOPHILS % (AUTO) 0.6 % (0-1); EOSINOPHILS # (AUTO) 0.2 X10'3 (0-0.9); EOSINOPHILS % (AUTO) 3.5 % (0-6); HEMOGLOBIN 12.3 g/dl (14.0-17.9); LYMPHOCYTES # (AUTO) 1.4 X10'3 (1.1-4.8); LYMPHOCYTES % (AUTO) 28.1 % (21-51); MEAN CORPUSCULAR HEMOGLOBIN 31.2 PG (27.0-31.0); MEAN CORPUSCULAR HGB CONC 34.1 g/dL (33.0-36.5); MEAN CORPUSCULAR VOLUME 91.5 FL (78-98); MEAN PLATELET VOLUME 10.3 FL (7.4-10.4); MONOCYTES # (AUTO) 0.4 X10'3 (0-0.9); MONOCYTES % (AUTO) 9.2 % (2-12); NEUTROPHILS # (AUTO) 2.9 X10'3 (1.8-7.7); NEUTROPHILS % (AUTO) 58.6 % (42-75); PLATELET COUNT 91 X10'3 (140-440); RED BLOOD COUNT 3.94 X10'6 (4.70-6.10); RED CELL DISTRIBUTION WIDTH 15.2 % (11.5-14.5); WHITE BLOOD COUNT 4.9 X10'3 (4.5-11.0)
--- NOTE | 2022-09-25 06:29 | NUR ---
Patient in room PCU 3025. I have received report from Ashley SILVA and had the opportunity to ask questions and assume patient care.
[2022-09-25 07:10] VITALS: BP 141/93
[2022-09-25] MEDS: multivitamins, therapeutics tablet PO SCH (07:59)
[2022-09-25] MEDS: levetiracetam 250mg tablet PO SCH (08:00)
[2022-09-25] MEDS: docusate sod 100mg capsule PO SCH (08:00)
[2022-09-25] MEDS: thiamine 100mg tablet PO SCH (08:00)
[2022-09-25] MEDS: pantoprazole 40mg Tablet.DR PO SCH (08:00)
[2022-09-25] MEDS: pantoprazole 40MG/NS 100ML BAG 100 ML IV SCH (08:00)
[2022-09-25] MEDS: folic acid 1mg tablet PO SCH (08:00)
[2022-09-25] MEDS: venlafaxine XR 75mg capsule (Q24H) PO SCH (08:01)
[2022-09-25] MEDS: pregabalin 75mg capsule PO SCH (08:01)
[2022-09-25] MEDS ORDERED: LORA-269 PO (09:30)
--- NOTE | 2022-09-25 11:01 | NUR ---
PAGER ID: [phone] MESSAGE: Royce U [phone] re:[id number] Lian Murrell It doesn't look like the discharge is completed. I just wanted to make sure before I started filling out my portion. Thanks.
[2022-09-25 11:16] VITALS: BP 123/89
--- NOTE | 2022-09-25 12:31 | NUR ---
Received order for consult. Patient was discharged. Called patient and left a message for him to call me back.
--- NOTE | 2022-09-25 12:32 | NUR ---
Patient discharged home with a renewal of ativan sent to [facility] in [place]. Patient IV taken out at this time. Canula was whole and intact upon inspection. Patient left with all of his belongings at discharge and walked down with one of the PCT. Patient left hospital via Taxi service provided by [facility].
[2022-09-27] MEDS ORDERED: LORazepam 1 MG tablet PO PRN (04:45)
[2022-09-27] MEDS ORDERED: LORazepam 2 mg/ml vial IV PRN (04:45)
[2022-09-27] MEDS ORDERED: thiamine 100mg tablet PO SCH (08:00)
[2022-09-27] MEDS ORDERED: folic acid 1mg tablet PO SCH (08:00)
== END 2022-09-25 12:04 | disposition home or self-care (01) | DRG 241 ==
LOC: ER 19:09 → ED HOLD 09-23 04:52 → EDBEDREQ 09-23 06:27 → PCU 3S 09-23 07:32
PROVIDERS: ADMIT Internal Medicine; ATTEND Internal Medicine
DX: K29.20 Alcoholic gastritis without bleeding (principal); K92.0 Hematemesis; F10.130 Alcohol abuse with withdrawal, uncomplicated; F31.9 Bipolar disorder, unspecified; F43.10 Post-traumatic stress disorder, unspecified; I10 Essential (primary) hypertension; Z79.899 Other long term (current) drug therapy; Z83.3 Family history of diabetes mellitus; Z88.8 Allergy status to other drugs, medicaments and biological substances
CPT/HCPCS: 36415; 71045; 80048; 80053; 83690; 85025; 87081; 99285; C9113; G0378; J2060; J2270; J2405; J3360; J3411; J3475; J3480; J3490; J7030

== ENCOUNTER 2022-09-28 03:05 | Emergency (ER) | payer MEDICAID ==
[~2022-09-28] VITALS: Ht 182.9 cm; Wt 113.6 kg
[2022-09-28 04:21] LABS: ALANINE AMINOTRANSFERASE 29 U/L (12-78); ALBUMIN 3.2 G/DL (3.4-5.0); ALBUMIN/GLOBULIN RATIO 1.1 (1.1-1.5); ALKALINE PHOSPHATASE 152 IU/L (46-116); ANION GAP 8 (8-16); ASPARTATE AMINO TRANSFERASE 36 U/L (10-37); BILIRUBIN,TOTAL 0.1 MG/DL (0.1-1.0); BLOOD UREA NITROGEN 7 MG/DL (7-18); BUN/CREATININE RATIO 8.6 (10.0-20.0); CALCIUM 7.8 MG/DL (8.5-10.1); CHLORIDE 107 MMOL/L (99-107); CREATININE 0.81 MG/DL (0.60-1.10); GLUCOSE 104 MG/DL (70-104); POTASSIUM 3.6 MMOL/L (3.5-5.1); SODIUM 143 MMOL/L (135-145); TOTAL CARBON DIOXIDE 27.7 MMOL/L (24-32); TOTAL PROTEIN 6.1 G/DL (6.4-8.2); eGFR > 90 ML/MIN
[2022-09-28 04:25] LABS: BASOPHILS # (AUTO) 0.1 X10'3 (0-0.2); BASOPHILS % (AUTO) 1.7 % (0-1); EOSINOPHILS # (AUTO) 0.1 X10'3 (0-0.9); EOSINOPHILS % (AUTO) 3.2 % (0-6); HEMATOCRIT 39.9 % (42.0-52.0); HEMOGLOBIN 13.4 g/dl (14.0-17.9); LYMPHOCYTES # (AUTO) 2.1 X10'3 (1.1-4.8); LYMPHOCYTES % (AUTO) 47.3 % (21-51); MEAN CORPUSCULAR HEMOGLOBIN 30.9 PG (27.0-31.0); MEAN CORPUSCULAR HGB CONC 33.6 g/dL (33.0-36.5); MEAN CORPUSCULAR VOLUME 92.1 FL (78-98); MEAN PLATELET VOLUME 8.8 FL (7.4-10.4); MONOCYTES # (AUTO) 0.5 X10'3 (0-0.9); MONOCYTES % (AUTO) 11.5 % (2-12); NEUTROPHILS # (AUTO) 1.6 X10'3 (1.8-7.7); NEUTROPHILS % (AUTO) 36.3 % (42-75); PLATELET COUNT 162 X10'3 (140-440); RED BLOOD COUNT 4.33 X10'6 (4.70-6.10); RED CELL DISTRIBUTION WIDTH 15.9 % (11.5-14.5); WHITE BLOOD COUNT 4.4 X10'3 (4.5-11.0)
[2022-09-28 04:30] LABS: ETHANOL 0.237 GM/DL (0.0-0.010)
[2022-09-28 04:35] LABS: ACETAMINOPHEN < 2.0 UG/ML (10-30)
[2022-09-28 04:42] LABS: URINE AMPHETAMINE SCREEN NEGATIVE (Neg); URINE BARBITUATE SCREEN POSITIVE (Neg); URINE BENZODIAZEPINES SCREEN POSITIVE (Neg); URINE CANNABINOID SCREEN NEGATIVE (Neg); URINE COCAINE SCREEN NEGATIVE (Neg); URINE METHADONE SCREEN NEGATIVE (Neg); URINE OPIATE SCREEN NEGATIVE (Neg); URINE PHENCYCLIDINE SCREEN NEGATIVE (Neg)
--- NOTE | 2022-09-28 05:29 | NUR ---
Pt states he didn't take any keppra but had wanted to hang himself.
[2022-09-28] MEDS: venlafaxine XR 75mg capsule (Q24H) PO SCH (07:30)
[2022-09-28] MEDS: folic acid 1mg tablet PO SCH (07:31)
[2022-09-28] MEDS: levetiracetam 250mg tablet PO SCH ×2 (07:31→20:17)
[2022-09-28] MEDS: pregabalin 75mg capsule PO SCH ×2 (07:32→20:17)
[2022-09-28] MEDS: pantoprazole 40mg Tablet.DR PO SCH ×2 (07:33→20:17)
[2022-09-28] MEDS: thiamine 100mg tablet PO SCH (07:33)
[2022-09-28] MEDS ORDERED: ketorolac trometh. 30mg/ml inj. IV ONE (09:35)
--- NOTE | 2022-09-28 09:50 | NUR ---
US completed. Pt cont to c/o RUQ pain 7, and right jaw pain 8/10. Toradol 15mg ordered and administered.
[2022-09-28] MEDS ORDERED: LORazepam 1 MG tablet PO ONE (14:50)
--- NOTE | 2022-09-28 15:19 | NUR ---
Pt was given 4mg of Ativan at 1451 for DTs. Now, pt is stating he has worsening nausea, and increasing tremors.
--- NOTE | 2022-09-28 15:24 | NUR ---
Notified Dr. Lopez. He assessed pt, and we will continue to monitor for a few more minutes to give the Ativan time to take effect and f/u as necessary.
[2022-09-28] MEDS ORDERED: chlordiazePOXIDE 25mg capsule PO ONE ×2 (15:50→20:00)
--- NOTE | 2022-09-28 15:50 | NUR ---
Pt states he doesn't feel any different. Dr. Lopez has ordered Librium for pt.
[2022-09-28] MEDS ORDERED: chlordiazePOXIDE 25mg capsule PO SCH (20:00)
--- NOTE | 2022-09-28 20:56 | NUR ---
PT RESTING IN BED WITH EYES CLOSED AFTER RECIEVING EVENING MEDICATIONS. PT DOES NOT SHOW ANY S/S OF DISTRESS. RR EQUAL AND UNLABORED.
[2022-09-28] MEDS ORDERED: prazosin 1mg capsule PO SCH (21:00)
[2022-09-28] MEDS ORDERED: quetiapine 100mg tablet PO SCH (21:00)
[2022-09-28] MEDS ORDERED: QUEtiapine 25mg tablet PO SCH (21:00)
[2022-09-28] MEDS ORDERED: prazosin 5mg capsule PO SCH (21:00)
--- NOTE | 2022-09-28 21:16 | NUR ---
SPOKE WITH RN AT [facility] FOR POSSIBLE PLACEMENT OF THE PT. CASE WILL BE PRESENTED TO MD AT FACILITY AND A FOLLOW UP CALL WILL BE MADE FOR AN UPDATE.
--- NOTE | 2022-09-28 21:53 | NUR ---
Patient accepted to [facility] ([facility] in [facility]. A covid swab is pending. The receiving MD is Clary. Per [facility] office this patient will transfer arond [phone] in the am.
--- NOTE | 2022-09-29 01:29 | NUR ---
Faxed patient COVID results to [facility] office. They will fax it to [facility] location. Patient machine pecan picker time in 8am 09/29/22
--- NOTE | 2022-09-29 02:19 | NUR ---
Patient is sleeping in bed with eyes closed.
--- NOTE | 2022-09-29 03:14 | NUR ---
patient is in bed sleeping with eyes closed, breathing is unlabored.
--- NOTE | 2022-09-29 04:44 | NUR ---
Patient is in bed sleeping peacefully, no complaints or issues at this time
[2022-09-29] MEDS ORDERED: LORazepam 1 MG tablet PO ONE (05:15)
--- NOTE | 2022-09-29 05:35 | NUR ---
spoke to rn at [facility] for nurse to nurse report.
--- NOTE | 2022-09-29 06:32 | NUR ---
Assumed care of patient. Resting comfortably in bed at this time. No new complaints.
[2022-09-29] MEDS: folic acid 1mg tablet PO SCH (08:34)
[2022-09-29] MEDS: pregabalin 75mg capsule PO SCH (08:34)
[2022-09-29] MEDS: venlafaxine XR 75mg capsule (Q24H) PO SCH (08:34)
[2022-09-29] MEDS: levetiracetam 250mg tablet PO SCH (08:34)
[2022-09-29] MEDS: pantoprazole 40mg Tablet.DR PO SCH (08:34)
[2022-09-29] MEDS: thiamine 100mg tablet PO SCH (08:35)
[2022-09-29] MEDS ORDERED: chlordiazePOXIDE 25mg capsule PO ONE (09:00)
--- NOTE | 2022-09-29 09:00 | NUR ---
Breaking primary nurse Bina. Pt requesting medication for ETOH withdrawl. Discussed previous doses of Librium and Ativan pt has received while here and with last Ativan dose around 5am. Discussed pt to be transported to psych facility and drive may be 2-3 hrs. Verbal order for Librium 100mg PO to be administered prior to pt transport.
--- NOTE | 2022-09-29 09:01 | NUR ---
Patient resting in bed comfortably with no sign of distress.
--- NOTE | 2022-09-29 09:22 | NUR ---
Spoke with receiving nurse from [facility]. Told her no new updates since report was called but 100 mg of Librium would be given before transport.
--- NOTE | 2022-09-29 09:47 | NUR ---
Patient appropriate for discharge with transport company. All belongings sent with patient. Report called by night nurse before shift change.
[2022-09-29 09:49] VITALS: BP 141/98
== END 2022-09-29 10:37 | disposition home or self-care (01) ==
LOC: ER 03:06
DX: T42.6X2A Poisoning by other antiepileptic and sedative-hypnotic drugs, intentional self-harm, initial encounter (principal); Z20.822 Contact with and (suspected) exposure to COVID-19; F10.129 Alcohol abuse with intoxication, unspecified; I10 Essential (primary) hypertension; Z98.890 Other specified postprocedural states; Z79.899 Other long term (current) drug therapy; Y90.9 Presence of alcohol in blood, level not specified; Y92.89 Other specified places as the place of occurrence of the external cause
CPT/HCPCS: 36415; 76700; 80053; 80305; 80320; 80329; 84443; 85025; 87811; 93005; 96374; 99285; J1885

== ENCOUNTER 2022-12-03 17:14 | Inpatient (IN) | payer MEDICAID, OTHER ==
[~2022-12-03] VITALS: Ht 182.9 cm; Wt 118.2 kg
[~2022-12-03 17:14] MED LIST changes: -LORA-269 PO
[2022-12-03] MEDS ORDERED: folic acid 1mg/0.2ml inj IV ONE (17:20)
[2022-12-03] MEDS ORDERED: thiamine 100mg/ml 2ml inj. IV ONE (17:20)
[2022-12-03] MEDS ORDERED: LORazepam 2 mg/ml vial IV ONE ×3 (17:20→18:25)
[2022-12-03] MEDS ORDERED: ringers solution, lacted 1,000 ML IV ONE ×2 (17:30→18:25)
[2022-12-03 17:46] LABS: BASOPHILS % (AUTO) 0.6 % (0-1); EOSINOPHILS # (AUTO) 0.1 X10'3 (0-0.9); EOSINOPHILS % (AUTO) 1.1 % (0-6); HEMATOCRIT 48.9 % (42.0-52.0); HEMOGLOBIN 16.6 g/dl (14.0-17.9); LYMPHOCYTES # (AUTO) 3.4 X10'3 (1.1-4.8); LYMPHOCYTES % (AUTO) 45.8 % (21-51); MEAN CORPUSCULAR HEMOGLOBIN 29.5 PG (27.0-31.0); MEAN CORPUSCULAR VOLUME 86.8 FL (78-98); MEAN PLATELET VOLUME 8.4 FL (7.4-10.4); MONOCYTES # (AUTO) 0.6 X10'3 (0-0.9); MONOCYTES % (AUTO) 7.8 % (2-12); NEUTROPHILS # (AUTO) 3.3 X10'3 (1.8-7.7); NEUTROPHILS % (AUTO) 44.7 % (42-75); PLATELET COUNT 325 X10'3 (140-440); RED BLOOD COUNT 5.63 X10'6 (4.70-6.10); RED CELL DISTRIBUTION WIDTH 15.1 % (11.5-14.5); WHITE BLOOD COUNT 7.4 X10'3 (4.5-11.0)
[2022-12-03 18:00] LABS: ALANINE AMINOTRANSFERASE 23 U/L (12-78); ALBUMIN 4.4 G/DL (3.4-5.0); ALBUMIN/GLOBULIN RATIO 1.2 (1.1-1.5); ALKALINE PHOSPHATASE 154 IU/L (46-116); ANION GAP 22 (8-16); ASPARTATE AMINO TRANSFERASE 17 U/L (10-37); BILIRUBIN,TOTAL 0.6 MG/DL (0.1-1.0); BLOOD UREA NITROGEN 8 MG/DL (7-18); CALCIUM 9.2 MG/DL (8.5-10.1); CHLORIDE 104 MMOL/L (99-107); GLUCOSE 107 MG/DL (70-104); MAGNESIUM 1.9 MG/DL (1.5-2.4); POTASSIUM 3.6 MMOL/L (3.5-5.1); SODIUM 145 MMOL/L (135-145); TOTAL CARBON DIOXIDE 18.8 MMOL/L (24-32); eGFR 82 ML/MIN
[2022-12-03] MEDS ORDERED: levetiracetam inj 500 MG in normal saline 100ml IV soln 95 ML IV STA (18:22)
[2022-12-03] MEDS ORDERED: levetiracetam inj 500 MG in normal saline 100ml IV soln 100 ML IV STA (18:24)
[2022-12-03] MEDS ORDERED: dextrose 50%-water 50ml dispensing syringe IV PRN (19:00)
[2022-12-03] MEDS ORDERED: haloperidol lactate 5mg/ml inj IM PRN (19:30)
[2022-12-03] MEDS ORDERED: LORazepam 2 mg/ml vial IV PRN (19:30)
[2022-12-03] MEDS ORDERED: potassium Cl 20 mEq SR tablet PO PRN ×2 (19:35)
[2022-12-03] MEDS ORDERED: magnesium Cl slow-release 64mg tablet PO PRN (19:35)
[2022-12-03] MEDS ORDERED: magnesium 4gm in 100ml NS 100 ML IV PRN (19:35)
[2022-12-03] MEDS ORDERED: potassium Cl 40MEQ/1/2NS 520ml 520 ML IV PRN (19:35)
[2022-12-03] MEDS ORDERED: acetaminophen 325mg tablet PO PRN ×2 (19:35)
[2022-12-03] MEDS ORDERED: magnesium 2GM in 50ml NS 50 ML IV PRN (19:35)
[2022-12-03] MEDS: LORazepam 2 mg/ml vial IV PRN ×2 (20:41→22:03)
[2022-12-03] MEDS ORDERED: thiamine 100mg/ml 2ml inj. IV SCH ×2 (21:00)
[2022-12-03 21:09] LABS: ETHANOL 0.248 GM/DL (0.0-0.010)
[2022-12-03] MEDS ORDERED: QUET50TA24 PO (21:40)
[2022-12-03] MEDS ORDERED: NORT75CA PO (21:42)
[2022-12-03] MEDS ORDERED: LORA-269 PO (21:42)
[2022-12-03] MEDS: atenolol 25mg tablet PO SCH (21:56)
[2022-12-03 22:28] LABS: CLARITY,URINE CLEAR (Clear); COLOR,URINE YELLOW (Yellow); GLUCOSE, URINE NEGATIVE (Neg); KETONES,URINE TRACE mg/dl (Neg); LEUKOCYTE ESTERASE ,URINE NEGATIVE (Neg); NITRITES, URINE NEGATIVE (Neg); OCCULT BLOOD,URINE NEGATIVE (Neg); PH,URINE 5.5 (4.8-8.0); PROTEIN,URINE NEGATIVE (Neg); UROBILINOGEN,URINE 0.2 E.U/dL (0.2-1.0)
[2022-12-03 22:40] LABS: URINE AMPHETAMINE SCREEN NEGATIVE (Neg); URINE BARBITUATE SCREEN NEGATIVE (Neg); URINE BENZODIAZEPINES SCREEN NEGATIVE (Neg); URINE CANNABINOID SCREEN NEGATIVE (Neg); URINE COCAINE SCREEN NEGATIVE (Neg); URINE METHADONE SCREEN NEGATIVE (Neg); URINE OPIATE SCREEN NEGATIVE (Neg); URINE PHENCYCLIDINE SCREEN NEGATIVE (Neg)
[2022-12-03 22:43] LABS: UA COLLECTION TYPE VOIDED
[2022-12-03] MEDS: enoxaparin 40mg/0.4ml syringe SQ SCH ×2 (22:43→22:48)
[2022-12-03] MEDS: normal saline 1000ml 1,000 ML IV SCH (22:44)
[2022-12-03] MEDS: levetiracetam 250mg tablet PO SCH (23:10)
[2022-12-04] MEDS: pantoprazole 40mg Tablet.DR PO SCH ×3 (00:04→20:21)
[2022-12-04] MEDS: prazosin 5mg capsule PO SCH ×2 (00:04→20:34)
[2022-12-04] MEDS: pregabalin 75mg capsule PO SCH ×3 (00:04→20:21)
[2022-12-04] MEDS: thiamine 100mg/ml 2ml inj. IV SCH ×3 (02:01→16:52)
[2022-12-04] MEDS: LORazepam 2 mg/ml vial IV PRN ×9 (02:01→22:45)
[2022-12-04 02:35] LABS: EOSINOPHILS # (AUTO) 0.1 X10'3 (0-0.9); EOSINOPHILS % (AUTO) 3.1 % (0-6); HEMATOCRIT 41.6 % (42.0-52.0); HEMOGLOBIN 13.9 g/dl (14.0-17.9); LYMPHOCYTES % (AUTO) 43.6 % (21-51); MEAN CORPUSCULAR HEMOGLOBIN 29.1 PG (27.0-31.0); MEAN CORPUSCULAR HGB CONC 33.4 g/dL (33.0-36.5); MEAN CORPUSCULAR VOLUME 87.2 FL (78-98); MEAN PLATELET VOLUME 8.4 FL (7.4-10.4); MONOCYTES # (AUTO) 0.4 X10'3 (0-0.9); MONOCYTES % (AUTO) 7.8 % (2-12); NEUTROPHILS # (AUTO) 2.1 X10'3 (1.8-7.7); NEUTROPHILS % (AUTO) 44.5 % (42-75); PLATELET COUNT 227 X10'3 (140-440); RED BLOOD COUNT 4.77 X10'6 (4.70-6.10); WHITE BLOOD COUNT 4.7 X10'3 (4.5-11.0)
[2022-12-04 02:49] LABS: ALANINE AMINOTRANSFERASE 18 U/L (12-78); ALBUMIN 3.3 G/DL (3.4-5.0); ALBUMIN/GLOBULIN RATIO 1.2 (1.1-1.5); ALKALINE PHOSPHATASE 114 IU/L (46-116); ANION GAP 13 (8-16); ASPARTATE AMINO TRANSFERASE 12 U/L (10-37); BILIRUBIN,TOTAL 0.8 MG/DL (0.1-1.0); BLOOD UREA NITROGEN 7 MG/DL (7-18); BUN/CREATININE RATIO 8.8 (10.0-20.0); CALCIUM 8.2 MG/DL (8.5-10.1); CHLORIDE 109 MMOL/L (99-107); GLUCOSE 91 MG/DL (70-104); LIPASE < 50 U/L (73-393); MAGNESIUM 1.6 MG/DL (1.5-2.4); PHOSPHORUS 2.6 MG/DL (2.3-4.5); POTASSIUM 3.6 MMOL/L (3.5-5.1); SODIUM 145 MMOL/L (135-145); TOTAL CARBON DIOXIDE 22.7 MMOL/L (24-32); TOTAL PROTEIN 6.1 G/DL (6.4-8.2); eGFR > 90 ML/MIN
--- NOTE | 2022-12-04 07:30 | NUR ---
REPORT ATTEMPTED, SHIRA OLIVEIRA TO CALL BACK FOR REPORT.
[2022-12-04] MEDS ORDERED: folic acid 1mg/0.2ml inj IV SCH (08:00)
--- NOTE | 2022-12-04 08:00 | NUR ---
Patient in room ORTHO 4022. I have received report from GERA and had the opportunity to ask questions and assume patient care.
[2022-12-04 08:15] VITALS: BP 155/98
[2022-12-04] MEDS: levetiracetam 250mg tablet PO SCH ×2 (08:37→20:21)
[2022-12-04] MEDS: atenolol 25mg tablet PO SCH (08:38)
[2022-12-04] MEDS: folic acid 1mg/0.2ml inj IV SCH (09:20)
--- NOTE | 2022-12-04 09:50 | NUR ---
Page Sent PAGER ID: [phone] MESSAGE: [phone] DELLA, DOING PT ASSESMENT HE SAYS HE HAS SUICIDAL THOUGHTS BUT DOESNT PLAN ON ACTING ON IT. PAGE CATTLE KNOCKER TO COME TALK TO HIM. JOSE [phone]
[2022-12-04 10:00] VITALS: BP 135/95
--- NOTE | 2022-12-04 10:25 | NUR ---
SPOKE WITH DR LENTZ ABOUT PTS PAST SUICIDAL ATTEMPT AND HIS THOUGHTS BUT NO PLAN. HE SAID HE WOULD TALK TO PT AND TO PUT SS CONSULT IN.
--- NOTE | 2022-12-04 13:27 | NUR ---
Received order for consult. Met with patient in regards to alcohol use and to see if patient was interested in resources for treatment options. Patient is working with Aby from [facility] on trying to get into [facility]. Patient has been calling once a week to see if any beds are open. I talked to patient about medication to help with cravings and patient said that Naltrexone doesn't work for him. I gave patient my card if he needs any help.
[2022-12-04] MEDS: ondansetron/PF 4mg/2ml inj IV PRN (15:37)
[2022-12-04] MEDS: normal saline 1000ml 1,000 ML IV SCH (15:43)
[2022-12-04 18:00] VITALS: BP 128/94
--- NOTE | 2022-12-04 18:37 | NUR ---
Problems reprioritized. Patient report given, questions answered & plan of care reviewed with SEAMUS SILVA.
--- NOTE | 2022-12-04 18:38 | NUR ---
PER DR LENTZ DOESN'T WANT PT ON PAIN MEDS RIGHT NOW DUE TO HIS DETOX AND OTHER MEDS HE IS ON SAID HE WILL LOOK AT IT LATER AND PUT SOMETHING ELSE IN. PT WAS OFFERED TYLENOL EARLIER BUT STATED THAT PROBABLY WOULD NOT HELP..
[2022-12-04 19:00] VITALS: BP 126/94
[2022-12-04] MEDS: enoxaparin 40mg/0.4ml syringe SQ SCH (20:21)
[2022-12-04] MEDS: oxyCODONE IR 5mg (immed. release) tablet PO PRN (20:22)
[2022-12-04] MEDS: QUEtiapine 25mg tablet PO SCH (20:22)
[2022-12-04] MEDS: quetiapine 100mg tablet PO SCH (20:22)
[2022-12-04] MEDS: nortriptyline 25mg capsule PO SCH (20:34)
[2022-12-04] MEDS: prazosin 1mg capsule PO SCH (20:34)
[2022-12-05] MEDS: LORazepam 2 mg/ml vial IV PRN ×7 (00:32→17:22)
[2022-12-05] MEDS: thiamine 100mg/ml 2ml inj. IV SCH ×3 (00:32→17:22)
[2022-12-05] MEDS: normal saline 1000ml 1,000 ML IV SCH ×2 (02:40→20:59)
[2022-12-05] MEDS: oxyCODONE IR 5mg (immed. release) tablet PO PRN ×2 (05:03→14:53)
[2022-12-05 06:00] VITALS: BP 121/80
--- NOTE | 2022-12-05 06:20 | NUR ---
RECEIVED REPORT FROM SHIRA WAY
--- NOTE | 2022-12-05 06:25 | NUR ---
Problems reprioritized. Patient report given, questions answered & plan of care reviewed with DAIN. Addendum: 12/05/22 at 0625 by Mathew Ramirez RN Amended: Links added.
[2022-12-05 06:47] LABS: BASOPHILS % (AUTO) 0.7 % (0-1); EOSINOPHILS # (AUTO) 0.2 X10'3 (0-0.9); EOSINOPHILS % (AUTO) 3.3 % (0-6); HEMATOCRIT 39.6 % (42.0-52.0); LYMPHOCYTES # (AUTO) 1.9 X10'3 (1.1-4.8); LYMPHOCYTES % (AUTO) 38.1 % (21-51); MEAN CORPUSCULAR HEMOGLOBIN 29.2 PG (27.0-31.0); MEAN CORPUSCULAR HGB CONC 32.9 g/dL (33.0-36.5); MEAN CORPUSCULAR VOLUME 88.6 FL (78-98); MONOCYTES # (AUTO) 0.4 X10'3 (0-0.9); NEUTROPHILS # (AUTO) 2.6 X10'3 (1.8-7.7); NEUTROPHILS % (AUTO) 50.9 % (42-75); PLATELET COUNT 197 X10'3 (140-440); RED BLOOD COUNT 4.47 X10'6 (4.70-6.10); RED CELL DISTRIBUTION WIDTH 14.6 % (11.5-14.5); WHITE BLOOD COUNT 5.1 X10'3 (4.5-11.0)
[2022-12-05 07:13] LABS: ALANINE AMINOTRANSFERASE 18 U/L (12-78); ALBUMIN 2.9 G/DL (3.4-5.0); ALBUMIN/GLOBULIN RATIO 1.1 (1.1-1.5); ALKALINE PHOSPHATASE 133 IU/L (46-116); ANION GAP 11 (8-16); ASPARTATE AMINO TRANSFERASE 16 U/L (10-37); BILIRUBIN,TOTAL 0.7 MG/DL (0.1-1.0); BLOOD UREA NITROGEN 14 MG/DL (7-18); BUN/CREATININE RATIO 13.7 (10.0-20.0); CHLORIDE 106 MMOL/L (99-107); CREATININE 1.02 MG/DL (0.60-1.10); GLUCOSE 116 MG/DL (70-104); LIPASE 69 U/L (73-393); MAGNESIUM 1.6 MG/DL (1.5-2.4); PHOSPHORUS 3.4 MG/DL (2.3-4.5); POTASSIUM 3.7 MMOL/L (3.5-5.1); SODIUM 141 MMOL/L (135-145); TOTAL CARBON DIOXIDE 23.8 MMOL/L (24-32); TOTAL PROTEIN 5.5 G/DL (6.4-8.2); eGFR 80 ML/MIN
[2022-12-05] MEDS: haloperidol 5mg tablet PO PRN ×2 (07:38→14:53)
[2022-12-05] MEDS: levetiracetam 250mg tablet PO SCH ×2 (07:39→20:34)
[2022-12-05] MEDS: pregabalin 75mg capsule PO SCH ×2 (07:40→20:34)
[2022-12-05] MEDS: pantoprazole 40mg Tablet.DR PO SCH ×2 (07:41→20:33)
[2022-12-05] MEDS: atenolol 25mg tablet PO SCH (07:42)
[2022-12-05] MEDS: folic acid 1mg/0.2ml inj IV SCH (07:43)
[2022-12-05 10:00] VITALS: BP 121/79
[2022-12-05] MEDS ORDERED: chlordiazePOXIDE 25mg capsule PO PRN (10:00)
[2022-12-05] MEDS: ondansetron/PF 4mg/2ml inj IV PRN (10:25)
--- NOTE | 2022-12-05 12:35 | NUR ---
Malnutrition consult: Per RN malnutrition screen pt is unsure of wt loss and reports decreased appetite. Pt is currently on a regular diet with average PO intake of 62.5% x 3 meals however appears to be improving after first meal yesterday since PO intake was 75-100% for the last two meals. Scaled wt this admit of 118.18kg (260 pounds) and a wt hx of of 113.64kg on 03/18/22 per EMR indicate some wt increase in the last 7 months. Pt is currently on Etoh withdraw protocol with documented mild tremors per EMR. Per d/w nurse pt does not need adaptive utensils nor texture modification. Pt is currently getting thiamin and folate and may benefit from a multivitamin, discussed with RN. Pt does not have documented weakness nor edema therefore lacks a minimum of two criteria for malnutrition at this time. Will continue to monitor. Addendum: 12/05/22 at [address] Amended: Links added. Addendum: 12/05/22 at [address] I have reviewed and agree with note.
[2022-12-05 18:00] VITALS: BP 131/89
--- NOTE | 2022-12-05 18:45 | NUR ---
Patient in room ORTHO 4022. I have received report from Gin SILVA and had the opportunity to ask questions and assume patient care.
--- NOTE | 2022-12-05 18:48 | NUR ---
gave report to grace dao
[2022-12-05] MEDS ORDERED: LORazepam 1 MG tablet PO PRN (19:00)
[2022-12-05] MEDS ORDERED: LORazepam 2 mg/ml vial IV PRN (19:00)
[2022-12-05] MEDS: LORazepam 1 MG tablet PO PRN (20:33)
[2022-12-05] MEDS: enoxaparin 40mg/0.4ml syringe SQ SCH (20:34)
[2022-12-05] MEDS: prazosin 1mg capsule PO SCH (20:45)
[2022-12-05] MEDS: quetiapine 100mg tablet PO SCH (20:46)
[2022-12-05] MEDS: prazosin 5mg capsule PO SCH (20:46)
[2022-12-05] MEDS: QUEtiapine 25mg tablet PO SCH (20:47)
[2022-12-05] MEDS: nortriptyline 25mg capsule PO SCH (20:50)
[2022-12-05 22:00] VITALS: BP 138/75
[2022-12-06] MEDS: thiamine 100mg/ml 2ml inj. IV SCH ×3 (00:59→16:39)
[2022-12-06] MEDS: LORazepam 1 MG tablet PO PRN ×4 (01:53→16:56)
--- NOTE | 2022-12-06 01:55 | NUR ---
Patient wanting to discuss his plan of care and wondering how long he will be here. He stated that he really wants to go to the [facility] in [place]. He states that it is a dual rehab for depression and alcohol. I informed him that I would let the day nurse know. He also very politely hinted that it is difficult in his room d/t neighbors loud snoring. He was given ear buds the night before, but he said that they haven't really worked for him. Charge nurse aware that patient wants to be moved to another room if he is staying another night
[2022-12-06] MEDS: normal saline 1000ml 1,000 ML IV SCH ×2 (04:47→12:23)
[2022-12-06 05:53] LABS: BASOPHILS % (AUTO) 0.5 % (0-1); EOSINOPHILS # (AUTO) 0.2 X10'3 (0-0.9); EOSINOPHILS % (AUTO) 4.1 % (0-6); HEMATOCRIT 40.4 % (42.0-52.0); HEMOGLOBIN 13.5 g/dl (14.0-17.9); LYMPHOCYTES # (AUTO) 2.1 X10'3 (1.1-4.8); LYMPHOCYTES % (AUTO) 42.1 % (21-51); MEAN CORPUSCULAR HEMOGLOBIN 29.5 PG (27.0-31.0); MEAN CORPUSCULAR HGB CONC 33.3 g/dL (33.0-36.5); MEAN CORPUSCULAR VOLUME 88.4 FL (78-98); MEAN PLATELET VOLUME 8.9 FL (7.4-10.4); MONOCYTES # (AUTO) 0.4 X10'3 (0-0.9); MONOCYTES % (AUTO) 7.4 % (2-12); NEUTROPHILS # (AUTO) 2.2 X10'3 (1.8-7.7); NEUTROPHILS % (AUTO) 45.9 % (42-75); PLATELET COUNT 198 X10'3 (140-440); RED BLOOD COUNT 4.57 X10'6 (4.70-6.10); RED CELL DISTRIBUTION WIDTH 15.2 % (11.5-14.5); WHITE BLOOD COUNT 4.9 X10'3 (4.5-11.0)
[2022-12-06 06:00] VITALS: BP 132/93
[2022-12-06 06:02] LABS: ALANINE AMINOTRANSFERASE 21 U/L (12-78); ALBUMIN 3.2 G/DL (3.4-5.0); ALBUMIN/GLOBULIN RATIO 1.2 (1.1-1.5); ALKALINE PHOSPHATASE 121 IU/L (46-116); ANION GAP 8 (8-16); ASPARTATE AMINO TRANSFERASE 12 U/L (10-37); BILIRUBIN,TOTAL 0.3 MG/DL (0.1-1.0); BLOOD UREA NITROGEN 8 MG/DL (7-18); BUN/CREATININE RATIO 10.1 (10.0-20.0); CALCIUM 8.8 MG/DL (8.5-10.1); CHLORIDE 106 MMOL/L (99-107); CREATININE 0.79 MG/DL (0.60-1.10); GLUCOSE 92 MG/DL (70-104); LIPASE < 50 U/L (73-393); MAGNESIUM 1.5 MG/DL (1.5-2.4); POTASSIUM 3.8 MMOL/L (3.5-5.1); SODIUM 142 MMOL/L (135-145); TOTAL CARBON DIOXIDE 27.9 MMOL/L (24-32); TOTAL PROTEIN 5.9 G/DL (6.4-8.2); eGFR > 90 ML/MIN
--- NOTE | 2022-12-06 06:45 | NUR ---
Patient in room ORTHO 4022. I have received report from Linda SILVA and had the opportunity to ask questions and assume patient care.
--- NOTE | 2022-12-06 06:50 | NUR ---
Problems reprioritized. Patient report given, questions answered & plan of care reviewed with Ese DECKER.. 5
[2022-12-06] MEDS: pregabalin 75mg capsule PO SCH (08:33)
[2022-12-06] MEDS: pantoprazole 40mg Tablet.DR PO SCH (08:33)
[2022-12-06] MEDS: levetiracetam 250mg tablet PO SCH (08:33)
[2022-12-06] MEDS: atenolol 25mg tablet PO SCH (08:34)
[2022-12-06] MEDS: folic acid 1mg/0.2ml inj IV SCH (09:43)
[2022-12-06 10:00] VITALS: BP 184/72
[2022-12-06] MEDS: ondansetron/PF 4mg/2ml inj IV PRN (12:22)
--- NOTE | 2022-12-06 14:11 | NUR ---
PAGER ID: [phone] MESSAGE: [id number]- Lian Murrell- patient is asking what his medical plan is? Pls advise? Abilio Mulligan [phone]
--- NOTE | 2022-12-06 14:11 | NUR ---
ss paged to get an update on plan
--- NOTE | 2022-12-06 14:40 | NUR ---
PAGER ID: [phone] MESSAGE: [phone] Rivera- 2nd page: patient is wanting to know his plan. Pls advise? YANDY Mulligan [phone]
--- NOTE | 2022-12-06 16:19 | NUR ---
PAGER ID: [phone] MESSAGE: [id number]- Handy, A- patient has a bed for rehab tomorrow. Wants to leave today to get things ready. SS putting together a safety plan. are you okay with discharging patient? pls advise? Ese [phone]
--- NOTE | 2022-12-06 17:30 | NUR ---
I have reviewed and agree with interventions, assessments, and documentation by Ese Vasquez LVN.
--- NOTE | 2022-12-06 18:00 | NUR ---
Problems reprioritized. Patient report given, questions answered & plan of care reviewed with Modesta SILVA.
[2022-12-07] MEDS ORDERED: folic acid 1mg tablet PO SCH (08:00)
[2022-12-07] MEDS ORDERED: thiamine 100mg tablet PO SCH (08:00)
[2022-12-07] MEDS ORDERED: LORazepam 1 MG tablet PO PRN (19:00)
[2022-12-07] MEDS ORDERED: LORazepam 2 mg/ml vial IV PRN (19:00)
== END 2022-12-06 18:12 | disposition home or self-care (01) | DRG 58 ==
LOC: ER 17:15 → ED HOLD 19:38 → ORTHO 4S 12-04 08:19
PROVIDERS: ADMIT Internal Medicine; ATTEND Family Medicine
DX: R25.1 Tremor, unspecified (principal); E87.20 Acidosis, unspecified; R45.851 Suicidal ideations; F10.129 Alcohol abuse with intoxication, unspecified; F10.130 Alcohol abuse with withdrawal, uncomplicated; M25.562 Pain in left knee; G89.29 Other chronic pain; I10 Essential (primary) hypertension; F32.A Depression, unspecified; M54.9 Dorsalgia, unspecified; R00.0 Tachycardia, unspecified; Z80.3 Family history of malignant neoplasm of breast; Z88.8 Allergy status to other drugs, medicaments and biological substances
CPT/HCPCS: 36415; 71045; 80053; 80305; 80320; 81003; 83605; 83690; 83735; 84100; 84145; 85025; 87040; 87081; 99285; G0378; J1650; J1953; J2060; J2405; J3411; J3490; J7030; J7120